=== PATIENT | female | born 1965 | race Caucasian/White ===

== ENCOUNTER 2024-06-15 17:38 | Observation (INO) ==
--- NOTE | 2024-06-15 18:01 | DR.SOBA ---
HPI Time Seen Time Seen by Provider: 06/15/24 17:59 Primary Care Physician Primary Care Physician: pretty HPI Comment HPI Comment: History as below. Complaints Chief Complaint:: Patient states a week ago she started with a productive cough, congestion,fever states now she cant catch her breath when walking states she is more sob with exertion. COVID-19 Coronavirus risk:travel/contact w/high risk person: No Has patient experienced Coronavirus symptoms: Yes Coronavirus symptoms experienced: Fever, Coughing and Shortness of Breath Reviewed Nurses Notes Reviewed: Yes Source History Provided: Patient Mode of Arrival Mode of Arrival: Ambulatory Timing Onset of Chief Complaint: 06/08/24 PMH PMH Past Medical History: Yes Past Medical History: COPD and Hypertension Past Medical History Comment: a-fib Past Surgical History: Yes Surgical History: Cholecystectomy Family History History of Family Medical Conditions: Yes Family Medical History: Hypertension Social History Does patient currently use any type of tobacco product: Yes Have you used tobacco products in the last 12 months: Yes Type of Tobacco Use: Cigarettes Does any household member use tobacco: Yes Alcohol Use: None Do you use any recreational Drugs:: No Lives With: Family Lives Where: Home Travel Risk Coronavirus risk:travel/contact w/high risk person: No Has patient experienced Coronavirus symptoms: Yes Coronavirus symptoms experienced: Fever, Coughing and Shortness of Breath Infectious screening In the last 2 months have you had wt loss of >10#?: NO Have you had fever, night sweats or hemotysis?: No Have you traveled outside the country in the last 6 months?: No Isolation: Droplet ROS Review of Systems Constitutional: No Symptoms Reported Eyes: No Symptoms Reported ENTM: No Symptoms Reported Respiratoy: No Symptoms Reported Cardiovascular: No Symptoms Reported Gastrointestinal/Abdominal: No Symptoms Reported Genitourinary: No Symptoms Reported Neurological: No Symptoms Reported Musculoskeletal: No Symptoms Reported Integumentary: No Symptoms Reported Hematologic/Lymphatic: No Symptoms Reported Endocrine: No Symptoms Reported Psychiatric: No Symptoms Reported All Other Systems: Reviewed and Negative PE Vital Signs Vitals: Vital Signs Temperature 98.9 F Pulse Rate 87 Pulse Rate 84 Pulse Rate 83 Pulse Rate 87 Pulse Rate 87 Pulse Rate 86 Pulse Rate 83 Pulse Rate 89 Pulse Rate 87 Pulse Rate 89 Pulse Rate 86 Pulse Rate 88 Pulse Rate 88 Pulse Rate 90 Pulse Rate 91 Pulse Rate 92 Pulse Rate 93 Pulse Rate 93 Pulse Rate 103 Pulse Rate 102 Respiratory Rate 24 Respiratory Rate 33 Respiratory Rate 27 Respiratory Rate 31 Respiratory Rate 29 Respiratory Rate 29 Respiratory Rate 24 Respiratory Rate 33 Respiratory Rate 37 Respiratory Rate 33 Respiratory Rate 35 Respiratory Rate 42 Respiratory Rate 31 Respiratory Rate 35 Respiratory Rate 44 Respiratory Rate 43 Respiratory Rate 27 Respiratory Rate 23 Respiratory Rate 28 Blood Pressure 140/65 Blood Pressure 118/85 Blood Pressure 129/61 Blood Pressure 120/59 Blood Pressure 177/79 Blood Pressure 156/76 O2 Sat by Pulse Oximetry 92 O2 Sat by Pulse Oximetry 92 O2 Sat by Pulse Oximetry 93 O2 Sat by Pulse Oximetry 92 O2 Sat by Pulse Oximetry 91 O2 Sat by Pulse Oximetry 90 O2 Sat by Pulse Oximetry 91 O2 Sat by Pulse Oximetry 93 O2 Sat by Pulse Oximetry 94 O2 Sat by Pulse Oximetry 95 O2 Sat by Pulse Oximetry 95 O2 Sat by Pulse Oximetry 96 O2 Sat by Pulse Oximetry 94 O2 Sat by Pulse Oximetry 98 O2 Sat by Pulse Oximetry 92 O2 Sat by Pulse Oximetry 92 O2 Sat by Pulse Oximetry 92 O2 Sat by Pulse Oximetry 83 O2 Sat by Pulse Oximetry 86 General Limitations: No Limitations General Appearance: Alert Head Head Exam: Normal Inspection Eyes Eye exam: Normal Appearance ENT ENT Exam: Normal Exam Neck Neck Exam: Normal Inspection Chest Chest Inspection: Normal Inspection and Symmetric Chest Wall Rise; negative Tenderness Respiratory Respiratory Exam: Accessory Muscle Use and Respiratory Distress; negative Normal Lung Sounds Bilat or Chest Wall Tenderness Respiratory Exam: Bilateral: Wheezing and Bilateral: Rhonchi Cardiovascular Cardiovascular Exam: Regular Rate, Normal Rhythm and Normal Heart Sounds; negative Systolic Murmur or Diastolic Murmur Abdominal Exam Abdominal Exam: Normal Inspection, Normal Bowel Sounds and Soft; negative Tenderness Extremities Extremities Exam: Normal Inspection and Normal Capillary Refill Back Back Exam: Normal Inspection; negative (R) CVA Tenderness or (L) CVA Tenderness Neurologic Neurological Exam: Alert and Oriented X3; negative Motor Sensory Deficit Psychiatric Psychiatric Exam: Normal Affect and Normal Mood Skin Skin Exam: Warm and Intact ROR Labs Reviewed 06/15/24 18:10 06/15/24 18:10 Laboratory: WBC 9.2 X10^3/uL (3.6-10.0) 06/15/24 18:10 RBC 4.25 X10^6/uL (3.5-5.4) 06/15/24 18:10 Hgb 13.8 g/dL (12.0-16.0) 06/15/24 18:10 Hct 40.7 % (36.0-47.0) 06/15/24 18:10 MCV 95.9 fL (80.0-100.0) 06/15/24 18:10 MCH 32.5 pg (27.0-34.0) 06/15/24 18:10 MCHC 33.8 g/dL (33.0-35.0) 06/15/24 18:10 RDW 13.4 % (11.6-16.5) 06/15/24 18:10 Plt Count 306 X10^3/uL (150.0-450.0) 06/15/24 18:10 MPV 9.0 fL (7.4-11.0) 06/15/24 18:10 Neut % (Auto) 80.7 % (42.0-75.0) H 06/15/24 18:10 Lymph % (Auto) 11.4 % (21.0-51.0) L 06/15/24 18:10 [place] % (Auto) 6.9 % (0.0-13.0) 06/15/24 18:10 Eos % (Auto) 0.4 % (0.9-2.9) L 06/15/24 18:10 Baso % (Auto) 0.6 % (0.2-1.0) 06/15/24 18:10 Neut # (Auto) 7.4 x10^3/uL (2.2-4.8) H 06/15/24 18:10 Lymph # (Auto) 1.0 X10^3/uL (1.3-2.9) L 06/15/24 18:10 [place] # (Auto) 0.6 x10^3/uL (0.3-0.8) 06/15/24 18:10 Eos # (Auto) 0.0 x10^3/uL (0.0-0.2) 06/15/24 18:10 Baso # (Auto) 0.1 X10^3/uL (0.0-0.1) 06/15/24 18:10 Absolute Nucleated RBC 0.1 /100WBC 06/15/24 18:10 Sample Site Lbra 06/15/24 17:56 ABG pH 7.460 (7.35-7.45) H 06/15/24 17:56 ABG pCO2 49.0 mmHg (35.0-45.0) H 06/15/24 17:56 ABG pO2 54.0 mmHg (80.0-100.0) L 06/15/24 17:56 ABG HCO3 34.8 mmol/L (22-26) H* 06/15/24 17:56 ABG O2 Saturation 89.0 % (90-100) L 06/15/24 17:56 ABG Base Excess 9.5 mmol/L (-2.0-2.0) H 06/15/24 17:56 Yoel Test N/a 06/15/24 17:56 A-a Gradient 84.0 mmHg 06/15/24 17:56 FiO2 28.0 06/15/24 17:56 Blood Gas Comments Pt ollie well elj 06/15/24 17:56 Sodium 140 mmol/L (136-145) 06/15/24 18:10 Corrected Sodium 142 mmol/L (136-145) 06/15/24 18:10 Potassium 3.3 mmol/L (3.5-5.1) L 06/15/24 18:10 Chloride 102 mmol/L (98-107) 06/15/24 18:10 Carbon Dioxide 33.9 mmol/L (21-32) H 06/15/24 18:10 BUN 16 mg/dL (7-18) 06/15/24 18:10 Creatinine 0.80 mg/dL (0.55-1.02) 06/15/24 18:10 Est GFR (MDRD) Af Amer > 60 (>60) 06/15/24 18:10 Est GFR (MDRD) Non-Af > 60 (>60) 06/15/24 18:10 Glucose 185 mg/dL (65-99) H 06/15/24 18:10 Calcium 9.5 mg/dL (8.5-10.1) 06/15/24 18:10 Corrected Calcium 10.3 mg/dL (8.5-10.1) H 06/15/24 18:10 Total Bilirubin 0.70 mg/dL (0.2-1.0) 06/15/24 18:10 AST 32 Units/L (15-37) 06/15/24 18:10 ALT 58 Units/L (12-78) 06/15/24 18:10 Alkaline Phosphatase 137 Units/L (46-116) H 06/15/24 18:10 B-Natriuretic Peptide 70.5 pg/mL (0-79) 06/15/24 18:10 Total Protein 7.3 g/dL (6.4-8.2) 06/15/24 18:10 Albumin 3.0 g/dL (3.4-5.0) L 06/15/24 18:10 Globulin 4.3 g/dL (2.5-4.5) 06/15/24 18:10 Albumin/Globulin Ratio 0.7 Ratio (1.1-2.1) L 06/15/24 18:10 Opioid Opioid Risk Tool Age (Kristofer box if 16-45): No History of Preadolescent Sexual Abuse: No Total: 0 Total Score Risk Category: Low Risk Copyright: Robert BATEMAN predicting aberrant behaviors Discharge Plan Discharge Plan Patient Disposition: 01 HOME, SELF-CARE Condition: Stable Prescriptions: No Action metoprolol tartrate 25 mg Tablet 25 mg PO QDAY Eliquis 2.5 mg Tablet 2.5 mg PO BID Trelegy Ellipta 100-62.5-25 mcg Blister With Device 1 inh INHALATION Q24H Health Concerns: Post Hospitalization: new medications and changes needed to prevent readmission or further decline. Pt educated and given instructions on all concerns. Plan of Treatment: Continue with present treatment and follow up plan. Pt is to keep follow up appointment as instructed and take medications as ordered. Orders to Discharge Patient Discharge Orders: Transfer (Routine); Ordered 06/15/24 Ordered By: KANA NIELSEN Follow ups/Referrals Follow ups/Referrals: JULIO CESAR TRIMBLE [Primary Care Provider] - 3 days Instructions Stand Alone Forms: Find Help Web Site, Post Hospital Follow Up Care
[2024-06-15 18:05] LABS: ABG BASE EXCESS 9.5 mmol/L (-2.0-2.0)
[2024-06-15 18:06] LABS: ABG HCO3 34.8 mmol/L (22-26)
[2024-06-15] MEDS: XOPENEX 1.25 MG/3 ML NEBULE NEB ONE (18:13)
[2024-06-15] MEDS: SOLU-Medrol 125 MG VIAL IVP ONE (18:16)
--- NOTE | 2024-06-15 18:16 | EKG ---
Test Reason : SOB Blood Pressure : */* mmHG Vent. Rate : 93 BPM Atrial Rate : 93 BPM P-R Int : 150 ms QRS Dur : 80 ms QT Int : 328 ms P-R-T Axes : 80 82 68 degrees QTc Int : 407 ms Normal sinus rhythm Nonspecific ST abnormality Abnormal ECG When compared with ECG of 10-MAY-2023 12:58, aberrant conduction is no longer present QT has shortened Confirmed by Ashutosh Douglas MD ([id number]) on 06/16/2024 7:30:56 AM Referred By: Confirmed By: Ashutosh Douglas MD
--- NOTE | 2024-06-15 18:44 | RAD ---
EXAM: CHEST, 1 VIEW HISTORY: Patient states a week ago she started with a productive cough, congestion,fever states now she cant c atch her breath when walking states she is more sob with exertion.; COMPARISON: May 10, 2023 TECHNIQUE: Chest radiographic imaging 1 view AP projection FINDINGS: No cardiomegaly Peribronchial cuffing in the hilar regions. No focal infiltrate. No acute osseous abnormality. No pleural effusion. No pneumothorax. Soft tissues are unremarkable. No acute osseous abnormality. IMPRESSION: Peribronchial cuffing in the hilar regions can be seen with viral infections/atypical infectious proc esses, bronchitis and asthma. No focal infiltrate. THIS IS AN ELECTRONICALLY VERIFIED FINAL REPORT 06/15/2024 6:40 PM - Electronically signed by John Ivan MD
[2024-06-15 20:00] LABS: BASOPHILS # (AUTO) 0.1 X10^3/uL (0.0-0.1); BASOPHILS % (AUTO) 0.6 % (0.2-1.0); EOSINOPHILS % (AUTO) 0.4 % (0.9-2.9); HEMATOCRIT 40.7 % (36.0-47.0); HEMOGLOBIN 13.8 g/dL (12.0-16.0); LYMPHOCYTES % (AUTO) 11.4 % (21.0-51.0); MEAN CORPUSCULAR HEMOGLOBIN 32.5 pg (27.0-34.0); MEAN CORPUSCULAR HGB CONC 33.8 g/dL (33.0-35.0); MEAN CORPUSCULAR VOLUME 95.9 fL (80.0-100.0); MONOCYTES # (AUTO) 0.6 x10^3/uL (0.3-0.8); MONOCYTES % (AUTO) 6.9 % (0.0-13.0); NEUTROPHILS # (AUTO) 7.4 x10^3/uL (2.2-4.8); NEUTROPHILS % (AUTO) 80.7 % (42.0-75.0); PLATELET COUNT 306 X10^3/uL (150.0-450.0); RED BLOOD COUNT 4.25 X10^6/uL (3.5-5.4); RED CELL DISTRIBUTION WIDTH 13.4 % (11.6-16.5); WHITE BLOOD COUNT 9.2 X10^3/uL (3.6-10.0)
[2024-06-15 20:09] LABS: ALANINE AMINOTRANSFERASE 58 Units/L (12-78); ALKALINE PHOSPHATASE 137 Units/L (46-116); ASPARTATE AMINO TRANSFERASE 32 Units/L (15-37); BLOOD UREA NITROGEN 16 mg/dL (7-18); CALCIUM 9.5 mg/dL (8.5-10.1); CARBON DIOXIDE 33.9 mmol/L (21-32); CHLORIDE 102 mmol/L (98-107); COR CA(FOR HYPOALB) 10.3 mg/dL (8.5-10.1); COR NA(FOR HYPERGLY) 142 mmol/L (136-145); GLUCOSE 185 mg/dL (65-99); POTASSIUM 3.3 mmol/L (3.5-5.1); SODIUM 140 mmol/L (136-145); TOTAL PROTEIN 7.3 g/dL (6.4-8.2); eGFR NON BLACK RACES > 60 (>60)
[2024-06-15] MEDS: ZOSYN VIAL 3.375 GRAMS 3.375 G in NS 100 ML IV 100 ML IV ONE (21:06)
[2024-06-15] MEDS: NS 250 ML IV 25 ML IV PRN (21:06)
[2024-06-15] MEDS ORDERED: NS 250 ML IV 25 ML IV PRN (21:14)
[2024-06-15] MEDS: ZOSYN VIAL 3.375 GRAMS 3.375 G in NS 100 ML IV 100 ML IV SCH (21:18)
[2024-06-15] MEDS ORDERED: NS 1,000 ML IV 1,000 ML ONE (22:33)
[2024-06-15] MEDS: NS 1,000 ML IV 1,000 ML IV SCH (22:42)
[2024-06-15 23:17] LABS: MAGNESIUM 1.9 mg/dL (2.0-2.9)
[2024-06-15] MEDS ORDERED: CONSULT PHARMACY - POTASSIUM & MAGNESIUM XX SCH (23:45)
[2024-06-16] MEDS ORDERED: DUONEB 0.5 MG/3 MG (3 mL) NEB SCH
[2024-06-16] MEDS: DUONEB 0.5 MG/3 MG (3 mL) NEB SCH (00:21)
[2024-06-16] MEDS: K-DUR TAB 20 MEQ PO SCH (00:57)
[2024-06-16] MEDS: MAG-OX TAB PO SCH (00:58)
[2024-06-16 06:01] LABS: BASOPHILS % (AUTO) 0.3 % (0.2-1.0); EOSINOPHILS # (AUTO) 0.1 x10^3/uL (0.0-0.2); EOSINOPHILS % (AUTO) 0.7 % (0.9-2.9); HEMATOCRIT 40.7 % (36.0-47.0); LYMPHOCYTES # (AUTO) 0.6 X10^3/uL (1.3-2.9); LYMPHOCYTES % (AUTO) 6.3 % (21.0-51.0); MEAN CORPUSCULAR HEMOGLOBIN 33.2 pg (27.0-34.0); MEAN CORPUSCULAR HGB CONC 34.4 g/dL (33.0-35.0); MEAN CORPUSCULAR VOLUME 96.7 fL (80.0-100.0); MEAN PLATELET VOLUME 8.5 fL (7.4-11.0); MONOCYTES # (AUTO) 0.3 x10^3/uL (0.3-0.8); MONOCYTES % (AUTO) 2.9 % (0.0-13.0); NEUTROPHILS # (AUTO) 7.9 x10^3/uL (2.2-4.8); NEUTROPHILS % (AUTO) 89.8 % (42.0-75.0); PLATELET COUNT 310 X10^3/uL (150.0-450.0); RED BLOOD COUNT 4.21 X10^6/uL (3.5-5.4); RED CELL DISTRIBUTION WIDTH 13.4 % (11.6-16.5); WHITE BLOOD COUNT 8.8 X10^3/uL (3.6-10.0)
[2024-06-16 06:26] LABS: ALANINE AMINOTRANSFERASE 69 Units/L (12-78); ALBUMIN 2.9 g/dL (3.4-5.0); ALKALINE PHOSPHATASE 146 Units/L (46-116); ASPARTATE AMINO TRANSFERASE 41 Units/L (15-37); BLOOD UREA NITROGEN 18 mg/dL (7-18); CALCIUM 9.7 mg/dL (8.5-10.1); CHLORIDE 105 mmol/L (98-107); COR CA(FOR HYPOALB) 10.6 mg/dL (8.5-10.1); COR NA(FOR HYPERGLY) 144 mmol/L (136-145); CREATININE 0.67 mg/dL (0.55-1.02); GLUCOSE 136 mg/dL (65-99); POTASSIUM 4.5 mmol/L (3.5-5.1); SODIUM 143 mmol/L (136-145); TOTAL PROTEIN 7.5 g/dL (6.4-8.2); eGFR NON BLACK RACES > 60 (>60)
[2024-06-16] MEDS: PULMICORT NEB TX 0.5 MG NEB SCH (08:28)
[2024-06-16 09:39] VITALS: BMI 32.4
[2024-06-16] MEDS: SOLU-Medrol 40 MG VIAL IVP SCH (09:40)
[2024-06-16] MEDS: VSL#3 PROBIOTIC CAP 112.5 B PO SCH (09:40)
[2024-06-16] MEDS ORDERED: PATIENT'S HOME MEDICATION (Fluticasone-Umeclidin-Vilanter [Trelegy Ellipta] 100-62.5-25 mc IN SCH (09:45)
[2024-06-16] MEDS: PREDNISONE TAB 10 MG PO SCH (11:13)
[2024-06-16] MEDS: ELIQUIS PO SCH (11:13)
[2024-06-16 15:59] LABS: BILIRUBIN,URINE NEGATIVE (NEGATIVE); BLOOD/HEMOGLOBIN,URINE 2+ (NEGATIVE); GLUCOSE, URINE 3+ (NEGATIVE); KETONES,URINE NEGATIVE (NEGATIVE); LEUKOCYTE ESTERASE ,URINE NEGATIVE (NEGATIVE); NITRITES,URINE NEGATIVE (NEGATIVE); PROTEIN,URINE 2+ (NEGATIVE); UROBILINOGEN,URINE NORMAL (NORMAL)
[2024-06-16 16:05] LABS: APPEARANCE,URINE CLEAR (CLEAR); COLOR,URINE YELLOW (YELLOW)
[2024-06-16 16:06] LABS: BACTERIA,URINE TRACE /HPF (NEGATIVE); HYALINE CASTS, URINE FEW /LPF (NEGATIVE); SQUAMOUS EPITHELIAL CELL,UR FEW /HPF (NEGATIVE)
[2024-06-16] MEDS: NICOTINE PATCH TD SCH (19:42)
[2024-06-16] MEDS: CHECK PATCH XX SCH (21:01)
[2024-06-17 05:55] LABS: ABG BASE EXCESS 5.3 mmol/L (-2.0-2.0)
[2024-06-17 05:57] LABS: ABG ALLEN TEST POS; ABG HCO3 32.2 mmol/L (22-26)
[2024-06-17 06:05] LABS: BASOPHILS # (AUTO) 0.1 X10^3/uL (0.0-0.1); BASOPHILS % (AUTO) 0.5 % (0.2-1.0); EOSINOPHILS % (AUTO) 0.1 % (0.9-2.9); HEMATOCRIT 35.8 % (36.0-47.0); LYMPHOCYTES # (AUTO) 1.4 X10^3/uL (1.3-2.9); LYMPHOCYTES % (AUTO) 13.5 % (21.0-51.0); MEAN CORPUSCULAR HEMOGLOBIN 32.5 pg (27.0-34.0); MEAN CORPUSCULAR HGB CONC 33.5 g/dL (33.0-35.0); MEAN CORPUSCULAR VOLUME 96.9 fL (80.0-100.0); MEAN PLATELET VOLUME 8.2 fL (7.4-11.0); MONOCYTES # (AUTO) 0.8 x10^3/uL (0.3-0.8); MONOCYTES % (AUTO) 7.7 % (0.0-13.0); NEUTROPHILS # (AUTO) 8.3 x10^3/uL (2.2-4.8); NEUTROPHILS % (AUTO) 78.2 % (42.0-75.0); PLATELET COUNT 293 X10^3/uL (150.0-450.0); RED CELL DISTRIBUTION WIDTH 13.7 % (11.6-16.5); WHITE BLOOD COUNT 10.6 X10^3/uL (3.6-10.0)
[2024-06-17 06:21] LABS: ALANINE AMINOTRANSFERASE 119 Units/L (12-78); ALBUMIN 2.5 g/dL (3.4-5.0); ALKALINE PHOSPHATASE 121 Units/L (46-116); ASPARTATE AMINO TRANSFERASE 72 Units/L (15-37); BLOOD UREA NITROGEN 18 mg/dL (7-18); CALCIUM 8.7 mg/dL (8.5-10.1); CARBON DIOXIDE 31.7 mmol/L (21-32); CHLORIDE 107 mmol/L (98-107); COR CA(FOR HYPOALB) 9.9 mg/dL (8.5-10.1); CREATININE 0.58 mg/dL (0.55-1.02); GLUCOSE 105 mg/dL (65-99); MAGNESIUM 2.2 mg/dL (2.0-2.9); POTASSIUM 4.3 mmol/L (3.5-5.1); SODIUM 142 mmol/L (136-145); TOTAL PROTEIN 6.2 g/dL (6.4-8.2); eGFR NON BLACK RACES > 60 (>60)
[2024-06-17] MEDS: LOPRESSOR TAB 25 MG PO SCH (10:01)
[2024-06-18 06:39] LABS: BASOPHILS # (AUTO) 0.1 X10^3/uL (0.0-0.1); BASOPHILS % (AUTO) 1.6 % (0.2-1.0); EOSINOPHILS % (AUTO) 0.6 % (0.9-2.9); HEMATOCRIT 33.9 % (36.0-47.0); HEMOGLOBIN 11.6 g/dL (12.0-16.0); LYMPHOCYTES % (AUTO) 25.3 % (21.0-51.0); MEAN CORPUSCULAR HEMOGLOBIN 32.9 pg (27.0-34.0); MEAN CORPUSCULAR HGB CONC 34.1 g/dL (33.0-35.0); MEAN CORPUSCULAR VOLUME 96.6 fL (80.0-100.0); MEAN PLATELET VOLUME 8.2 fL (7.4-11.0); MONOCYTES # (AUTO) 0.7 x10^3/uL (0.3-0.8); MONOCYTES % (AUTO) 8.1 % (0.0-13.0); NEUTROPHILS # (AUTO) 5.2 x10^3/uL (2.2-4.8); NEUTROPHILS % (AUTO) 64.4 % (42.0-75.0); PLATELET COUNT 284 X10^3/uL (150.0-450.0); RED BLOOD COUNT 3.51 X10^6/uL (3.5-5.4); RED CELL DISTRIBUTION WIDTH 13.7 % (11.6-16.5)
[2024-06-18 06:55] LABS: ALANINE AMINOTRANSFERASE 158 Units/L (12-78); ALBUMIN 2.4 g/dL (3.4-5.0); ALKALINE PHOSPHATASE 117 Units/L (46-116); ASPARTATE AMINO TRANSFERASE 69 Units/L (15-37); BLOOD UREA NITROGEN 11 mg/dL (7-18); CALCIUM 8.3 mg/dL (8.5-10.1); CARBON DIOXIDE 32.2 mmol/L (21-32); CHLORIDE 107 mmol/L (98-107); COR CA(FOR HYPOALB) 9.6 mg/dL (8.5-10.1); CREATININE 0.58 mg/dL (0.55-1.02); GLUCOSE 79 mg/dL (65-99); SODIUM 144 mmol/L (136-145); TOTAL PROTEIN 5.8 g/dL (6.4-8.2); eGFR NON BLACK RACES > 60 (>60)
[2024-06-18] MEDS: MILK OF MAGNESIA PO SCH (13:05)
--- NOTE | 2024-06-18 20:05 | PCM.PROG ---
Progress Note Progress Note for Day of Date of Exam: 06/18/24 Subjective Subjective: 58-year-old white female admitted on June 15, 2024 for COPD exacerbation, comahypoxia with bronchitis. [facility] delivered home oxygen to her house yesterday and brought a portable oxygen tank to her room for going home. Patient does not have a nebulizer machine at home but has been using a Trelegy inhaler at home. Currently, the patient does not have albuterol MDI at home. Clinical observations: This morning, J the patient reports coughing up copious amounts of sputum, e specially after receiving nebulizer treatments. Today's exam revealed poor air entry anteriorly and posteriorly in the left and right lung, but there were no wheezes or bronchitis. O2 sat in the low 90s on a 2-liter nasal cannula. Past Medical Family Social History Allergies: Allergies No Known Drug Allergies Allergy (Unknown, Verified 06/15/24 17:48) Onset Date: 07/06/2021 Review of Systems ROS: No change since H&P Vital Signs and I&O's Vital Signs: Vital Signs Temperature 97.8 F Pulse Rate [Radial] 82 Respiratory Rate 20 Blood Pressure [Right Arm] 119/63 O2 Sat by Pulse Oximetry 97 Intake and Output: Intake & Output 06/16/24 06/17/24 06/18/24 06/19/24 11:59 11:59 11:59 11:59 Intake Total 737 / 737 3610 / 3610 3128 / 3128 1378 / 1378 Output Total 4 / 4 Balance 737 / 737 3610 / 3610 3124 / 3124 1378 / 1378 Physical Exam Oriented: Normal, Time, Person and Place Respiratory: Generalized, Diminished, Wheezes and Rhonchi Cardiovascular: Normal Auscultation: Bowel Sounds: Normal Tenderness: Normal Musculoskeletal: Normal Mood Description: Calm Speech Pattern: Clear and Appropriate Laboratory and Diagnostics 06/18/24 05:39 06/18/24 05:39 Labs: 06/16/24 05:24 Sputum - Expectorated Sputum Sputum Culture - Final 06/16/24 05:24 Sputum - Expectorated Sputum - Final 06/16/24 15:45 Urine,Clean Catch Urine Culture - Final 06/15/24 23:13 Blood Blood Culture - Preliminary Laboratory WBC 8.0 X10^3/uL (3.6-10.0) 06/18/24 05:39 RBC 3.51 X10^6/uL (3.5-5.4) 06/18/24 05:39 Hgb 11.6 g/dL (12.0-16.0) L 06/18/24 05:39 Hct 33.9 % (36.0-47.0) L 06/18/24 05:39 MCV 96.6 fL (80.0-100.0) 06/18/24 05:39 MCH 32.9 pg (27.0-34.0) 06/18/24 05:39 MCHC 34.1 g/dL (33.0-35.0) 06/18/24 05:39 RDW 13.7 % (11.6-16.5) 06/18/24 05:39 Plt Count 284 X10^3/uL (150.0-450.0) 06/18/24 05:39 MPV 8.2 fL (7.4-11.0) 06/18/24 05:39 Neut % (Auto) 64.4 % (42.0-75.0) 06/18/24 05:39 Lymph % (Auto) 25.3 % (21.0-51.0) 06/18/24 05:39 [place] % (Auto) 8.1 % (0.0-13.0) 06/18/24 05:39 Eos % (Auto) 0.6 % (0.9-2.9) L 06/18/24 05:39 Baso % (Auto) 1.6 % (0.2-1.0) H 06/18/24 05:39 Neut # (Auto) 5.2 x10^3/uL (2.2-4.8) H 06/18/24 05:39 Lymph # (Auto) 2.0 X10^3/uL (1.3-2.9) 06/18/24 05:39 [place] # (Auto) 0.7 x10^3/uL (0.3-0.8) 06/18/24 05:39 Eos # (Auto) 0.0 x10^3/uL (0.0-0.2) 06/18/24 05:39 Baso # (Auto) 0.1 X10^3/uL (0.0-0.1) 06/18/24 05:39 Absolute Nucleated RBC 0.1 /100WBC 06/18/24 05:39 Sample Site Rrad 06/17/24 05:55 ABG pH 7.360 (7.35-7.45) 06/17/24 05:55 ABG pCO2 57.0 mmHg (35.0-45.0) H* 06/17/24 05:55 ABG pO2 50.0 mmHg (80.0-100.0) L 06/17/24 05:55 ABG HCO3 32.2 mmol/L (22-26) H* 06/17/24 05:55 ABG O2 Saturation 83.0 % (90-100) L* 06/17/24 05:55 ABG Base Excess 5.3 mmol/L (-2.0-2.0) H 06/17/24 05:55 Yoel Test Pos 06/17/24 05:55 A-a Gradient 28.0 mmHg 06/17/24 05:55 FiO2 21.0 06/17/24 05:55 Blood Gas Comments Padmini abg well-mtf 06/17/24 05:55 Sodium 144 mmol/L (136-145) 06/18/24 05:39 Corrected Sodium TNP 06/18/24 05:39 Potassium 4.0 mmol/L (3.5-5.1) 06/18/24 05:39 Chloride 107 mmol/L (98-107) 06/18/24 05:39 Carbon Dioxide 32.2 mmol/L (21-32) H 06/18/24 05:39 BUN 11 mg/dL (7-18) 06/18/24 05:39 Creatinine 0.58 mg/dL (0.55-1.02) 06/18/24 05:39 Est GFR (MDRD) Af Amer > 60 (>60) 06/18/24 05:39 Est GFR (MDRD) Non-Af > 60 (>60) 06/18/24 05:39 Glucose 79 mg/dL (65-99) 06/18/24 05:39 Calcium 8.3 mg/dL (8.5-10.1) L 06/18/24 05:39 Corrected Calcium 9.6 mg/dL (8.5-10.1) 06/18/24 05:39 Magnesium 2.2 mg/dL (2.0-2.9) 06/17/24 05:45 Total Bilirubin 0.30 mg/dL (0.2-1.0) 06/18/24 05:39 AST 69 Units/L (15-37) H 06/18/24 05:39 ALT 158 Units/L (12-78) H 06/18/24 05:39 Alkaline Phosphatase 117 Units/L (46-116) H 06/18/24 05:39 Creatine Kinase 59 Units/L (26-192) 06/15/24 18:10 Troponin I High Sens 4.5 ng/L (4.0-60.0) 06/15/24 18:10 B-Natriuretic Peptide 70.5 pg/mL (0-79) 06/15/24 18:10 Total Protein 5.8 g/dL (6.4-8.2) L 06/18/24 05:39 Albumin 2.4 g/dL (3.4-5.0) L 06/18/24 05:39 Globulin 3.4 g/dL (2.5-4.5) 06/18/24 05:39 Albumin/Globulin Ratio 0.7 Ratio (1.1-2.1) L 06/18/24 05:39 Specimen Type Clean catch urine 06/16/24 15:45 Urine Color Yellow (YELLOW) 06/16/24 15:45 Urine Appearance Clear (CLEAR) 06/16/24 15:45 Urine pH 6.0 (5.0 - 8.0) 06/16/24 15:45 Ur Specific [place] 1.020 (1.000-1.030) 06/16/24 15:45 Urine Protein 2+ (NEGATIVE) 06/16/24 15:45 Urine Glucose (UA) 3+ (NEGATIVE) 06/16/24 15:45 Urine Ketones Negative (NEGATIVE) 06/16/24 15:45 Urine Blood 2+ (NEGATIVE) 06/16/24 15:45 Urine Nitrite Negative (NEGATIVE) 06/16/24 15:45 Urine Bilirubin Negative (NEGATIVE) 06/16/24 15:45 Urine Urobilinogen Normal (NORMAL) 06/16/24 15:45 Ur Leukocyte Esterase Negative (NEGATIVE) 06/16/24 15:45 Urine RBC 5-10 /HPF (0-3) A 06/16/24 15:45 Urine WBC 0-2 /HPF (0-5) 06/16/24 15:45 Ur Squamous Epith Cells Few /HPF (NEGATIVE) 06/16/24 15:45 Urine Bacteria Trace /HPF (NEGATIVE) 06/16/24 15:45 Hyaline Casts Few /LPF (NEGATIVE) 06/16/24 15:45 Urine Mucus Few /HPF (NEGATIVE) 06/16/24 15:45 Ur Culture Indicated? No/not indicated 06/16/24 15:45 SARS-CoV-2 (PCR) Negative (NEGATIVE) 06/15/24 21:12 Influenza Type A (PCR) Negative (NEGATIVE) 06/15/24 21:12 Influenza Type B (PCR) Negative (NEGATIVE) 06/15/24 21:12 RSV (PCR) Negative (NEGATIVE) 06/15/24 21:12 Resp Viral Panel (PCR) See scanned report 06/16/24 08:50 Radiology Reviewed: Yes Plan (1) COPD exacerbation: Status: Acute Narrative Support Text: Overall improved clinically. Plan: Given poor inspiration and O2 sat in the low 90s on 2 liter nasal cannula, patient would benefit from another 24 hours of treatment with IV antibiotics, corticosteroids, and jet nebs. I will repeat chest x-ray and routine labs tomorrow. If improvement is seen, plan to discharge home at that time.
[2024-06-18] MEDS: COLACE CAP 100 MG PO SCH (20:30)
[2024-06-19 04:11] VITALS: O2SAT 97
[2024-06-19 05:27] LABS: BASOPHILS # (AUTO) 0.1 X10^3/uL (0.0-0.1); BASOPHILS % (AUTO) 1.2 % (0.2-1.0); EOSINOPHILS # (AUTO) 0.1 x10^3/uL (0.0-0.2); EOSINOPHILS % (AUTO) 1.5 % (0.9-2.9); HEMOGLOBIN 11.8 g/dL (12.0-16.0); LYMPHOCYTES # (AUTO) 1.8 X10^3/uL (1.3-2.9); LYMPHOCYTES % (AUTO) 23.2 % (21.0-51.0); MEAN CORPUSCULAR HEMOGLOBIN 32.6 pg (27.0-34.0); MEAN CORPUSCULAR HGB CONC 33.8 g/dL (33.0-35.0); MEAN CORPUSCULAR VOLUME 96.4 fL (80.0-100.0); MEAN PLATELET VOLUME 7.9 fL (7.4-11.0); MONOCYTES # (AUTO) 0.8 x10^3/uL (0.3-0.8); MONOCYTES % (AUTO) 9.7 % (0.0-13.0); NEUTROPHILS % (AUTO) 64.4 % (42.0-75.0); PLATELET COUNT 285 X10^3/uL (150.0-450.0); RED BLOOD COUNT 3.63 X10^6/uL (3.5-5.4); RED CELL DISTRIBUTION WIDTH 13.8 % (11.6-16.5); WHITE BLOOD COUNT 7.8 X10^3/uL (3.6-10.0)
[2024-06-19 05:37] LABS: ALANINE AMINOTRANSFERASE 136 Units/L (12-78); ALBUMIN 2.4 g/dL (3.4-5.0); ALKALINE PHOSPHATASE 107 Units/L (46-116); ASPARTATE AMINO TRANSFERASE 35 Units/L (15-37); BLOOD UREA NITROGEN 9 mg/dL (7-18); CALCIUM 8.6 mg/dL (8.5-10.1); CARBON DIOXIDE 33.5 mmol/L (21-32); CHLORIDE 107 mmol/L (98-107); COR CA(FOR HYPOALB) 9.9 mg/dL (8.5-10.1); CREATININE 0.64 mg/dL (0.55-1.02); GLUCOSE 89 mg/dL (65-99); POTASSIUM 3.8 mmol/L (3.5-5.1); SODIUM 143 mmol/L (136-145); TOTAL PROTEIN 5.9 g/dL (6.4-8.2); eGFR NON BLACK RACES > 60 (>60)
[2024-06-19 08:41] VITALS: PULSE 92
[2024-06-19 10:29] VITALS: BP 148/71; RESP 20; TEMP 98.4
== END 2024-06-19 14:00 | disposition home or self-care (01) ==
LOC: MED/SURG 17:38 → ER 17:38 → MED/SURG 21:55
PROVIDERS: ADMIT Family Medicine; ATTEND Obstetrics & Gynecology Obstetrics
DX: R94.31 Abnormal electrocardiogram [ECG] [EKG]; E87.6 Hypokalemia; R09.02 Hypoxemia; R06.02 Shortness of breath; Z79.01 Long term (current) use of anticoagulants; Z72.0 Tobacco use; J44.1 Chronic obstructive pulmonary disease with (acute) exacerbation; Z03.818 Encounter for observation for suspected exposure to other biological agents ruled out; I10 Essential (primary) hypertension; E83.42 Hypomagnesemia; R26.89 Other abnormalities of gait and mobility; J20.8 Acute bronchitis due to other specified organisms